=== PATIENT | female | born 1955 | race Two or more races ===

== ENCOUNTER 2022-06-23 18:43 | Inpatient (IN) | payer OTHER, MEDICAID ==
[~2022-06-23] VITALS: Ht 165.1 cm; Wt 88.0 kg
[2022-06-23] MEDS ORDERED: SODIUM CHLORIDE 0.9% 1,000 ML IV ONE (19:45)
[2022-06-23 20:15] LABS: Basophils # (auto) 0.1 10 ^3/uL (0-0.2); Basophils % (auto) 0.8 % (0.0-2.0); Eosinophils # (auto) 0.1 10 ^3/uL (0-0.8); Eosinophils % (auto) 0.8 % (0.0-7.0); Hematocrit 39.5 % (36.0-46.0); Hemoglobin 12.8 g/dL (12.2-16.2); Lymphocytes # (auto) 0.9 10 ^3/uL (0.4-5.4); Lymphocytes % (auto) 10.9 % (10.0-50.0); Mean Corpuscular Hemoglobin 28.1 pg (28.0-32.0); Mean Corpuscular Hgb Conc. 32.4 g/dL (32.0-36.0); Mean Corpuscular Volume 86.7 fL (80.0-100.0); Monocytes # (auto) 0.4 10 ^3/uL (0-1.3); Monocytes % (auto) 4.4 % (0.0-12.0); Neutrophils # (auto) 6.9 10 ^3/uL (1.6-8.6); Neutrophils % (auto) 83.1 % (37.0-80.0); Nucleated Red Blood Cells % 0.1 %; Red Blood Cells 4.56 10^6/uL (4.0-5.20); Red Cell Distribution Width 17.7 % (11.8-14.3); White Blood Cell 8.3 10^3/uL (4.4-10.8)
[2022-06-23 20:34] LABS: Albumin 3.4 g/dL (3.4-5.0); CRP High Sensitivity 0.4 mg/dL (< 0.3); Calcium 8.7 mg/dL (8.5-10.1); Magnesium 2.3 mg/dL (1.6-2.6); Potassium 3.5 mmol/L (3.5-5.1)
[2022-06-23 20:38] LABS: BUN/Creatinine Ratio 17.6; Bilirubin, Total 0.3 mg/dL (0.2-1.0); Total Protein 6.6 g/dL (6.4-8.2)
[2022-06-23] MEDS ORDERED: SODIUM CHLORIDE 0.9% 500 ML IV ONE (21:15)
[2022-06-23] MEDS ORDERED: LEVOTHYROXINE SODIUM 100 MCG/5 ML INJ IV ONE ×2 (21:30→22:30)
[2022-06-23] MEDS ORDERED: NITROGLYCERIN 0.4 MG SL TAB SL PRN (21:30)
[2022-06-23] MEDS ORDERED: TEMAZEPAM 15 MG CAP PO PRN (21:30)
[2022-06-23] MEDS ORDERED: MORPHINE SULFATE INJ 2 MG/ml SYRG IV PRN (21:30)
[2022-06-23] MEDS ORDERED: ONDANSETRON HCL 4 MG/2 ML VIAL IV PRN (21:30)
[2022-06-23] MEDS ORDERED: DEXTROSE (50%) 50ML SYRG IV PRN (21:30)
[2022-06-23 21:40] LABS: Urine Bacteria NONE SEEN /hpf (None Seen); Urine Blood Negative /uL (Negative); Urine Specific Gravity 1.007 (1.001-1.035); Urine WBC 1 /hpf (0 - 5)
[2022-06-23] MEDS ORDERED: POTASSIUM CHL 20MEQ/100ML 100 ML IV ONE ×3 (21:55→23:00)
[2022-06-23] MEDS ORDERED: AMIODARONE HCL (50 MG/ ML) 3 ML VIAL IV ONE (21:58)
[2022-06-23] MEDS ORDERED: AMIODARONE 450mg/250ml AE 0 ML IV ONE (21:58)
[2022-06-23] MEDS ORDERED: MAGNESIUM SULFATE 1GM/100ML 200 ML IV ONE (21:59)
[2022-06-23] MEDS: MAGNESIUM SULFATE 1GM/100ML 100 ML IV SCH ×2 (22:00→23:00)
[2022-06-23] MEDS: hydrALAZINE HCL 20 MG/ML VL IV PRN (22:32)
[2022-06-23] MEDS ORDERED: DOPamine 1600MCG/ML D5W 250 ML IV ONE (22:51)
[2022-06-23] MEDS ORDERED: DOPamine 1600MCG/ML D5W 250 ML IV SCH (23:00)
[2022-06-23] MEDS: DOPamine 1600MCG/ML D5W 250 ML IV SCH (23:15)
[2022-06-24] VITALS (56 sets, daily range): BP systolic 90–192; BP diastolic 34–79
[2022-06-24] MEDS: InsuLIN REG 1unit/0.01ml Soln (100units/ml) SC SCH ×4 (01:41→18:38)
[2022-06-24] MEDS: ACCU-CHEK COMFORT CURVE STRIP VI SCH ×4 (01:41→18:00)
[2022-06-24] MEDS ORDERED: cefTRIAXone 1GM/50ML D5W 50 ML IV ONE ×2 (02:45→03:59)
[2022-06-24] MEDS ORDERED: MEPERIDINE HCL (25 MG/ML) 1ML VIAL IV ONE (02:45)
[2022-06-24 03:21] LABS: Basophils # (auto) 0.1 10 ^3/uL (0-0.2); Basophils % (auto) 0.5 % (0.0-2.0); Eosinophils # (auto) 0 10 ^3/uL (0-0.8); Hematocrit 43.5 % (36.0-46.0); Hemoglobin 14.1 g/dL (12.2-16.2); Lymphocytes % (auto) 6.4 % (10.0-50.0); Mean Corpuscular Hemoglobin 27.8 pg (28.0-32.0); Mean Corpuscular Hgb Conc. 32.5 g/dL (32.0-36.0); Mean Corpuscular Volume 85.7 fL (80.0-100.0); Monocytes # (auto) 0.8 10 ^3/uL (0-1.3); Monocytes % (auto) 5.1 % (0.0-12.0); Neutrophils # (auto) 13.6 10 ^3/uL (1.6-8.6); Red Blood Cells 5.08 10^6/uL (4.0-5.20); Red Cell Distribution Width 18.1 % (11.8-14.3); White Blood Cell 15.5 10^3/uL (4.4-10.8)
[2022-06-24] MEDS ORDERED: AMIODARONE 450mg/250ml AE 250 ML IV ONE (03:21)
[2022-06-24] MEDS ORDERED: MAGNESIUM SULFATE 1GM/100ML 200 ML IV ONE (03:22)
[2022-06-24 03:33] LABS: Albumin 3.5 g/dL (3.4-5.0); BUN/Creatinine Ratio 14.9; Calcium 8.6 mg/dL (8.5-10.1); Potassium 3.9 mmol/L (3.5-5.1)
[2022-06-24 03:36] LABS: Bilirubin, Total 0.8 mg/dL (0.2-1.0); Total Protein 7.2 g/dL (6.4-8.2)
[2022-06-24] MEDS: MAGNESIUM SULFATE 1GM/100ML 100 ML IV SCH ×2 (03:49→04:47)
[2022-06-24] MEDS ORDERED: NITROGLYCERIN 2% OINT 1GM PKG TD ONE ×2 (03:52→04:00)
[2022-06-24] MEDS: DOPamine 1600MCG/ML D5W 250 ML IV SCH ×3 (04:16→19:50)
[2022-06-24 04:43] LABS: Albumin 3.6 g/dL (3.4-5.0); BUN/Creatinine Ratio 14.4; Calcium 8.5 mg/dL (8.5-10.1); Potassium 3.2 mmol/L (3.5-5.1)
[2022-06-24 04:46] LABS: Bilirubin, Total 0.7 mg/dL (0.2-1.0); Total Protein 7.1 g/dL (6.4-8.2)
[2022-06-24] MEDS ORDERED: ETOMIDATE (2MG/ML) 20ML VIAL IV ONE ×3 (06:08→06:20)
[2022-06-24] MEDS ORDERED: SUCCINYLCHOLINE CHLORIDE 20 MG/ML 10ML VIAL IV ONE ×2 (06:08→06:09)
[2022-06-24] MEDS ORDERED: MIDAZOLAM DRIP 50 mg/50mL 50 ML IV ONE (06:09)
[2022-06-24] MEDS: MIDAZOLAM DRIP 50 mg/50mL 50 ML IV SCH ×6 (06:27→23:19)
[2022-06-24] MEDS ORDERED: fentaNYL Drip 2500mCg/250mlNS 250 ML IV ONE (06:42)
[2022-06-24] MEDS: fentaNYL Drip 2500mCg/250mlNS 250 ML IV SCH (06:44)
[2022-06-24] MEDS: LEVOTHYROXINE SODIUM 50 MCG TAB PO SCH (07:00)
[2022-06-24] MEDS ORDERED: NOREPINEPHRINE 8 MG/250ML KIT 250 ML IV ONE ×2 (07:03→07:05)
[2022-06-24] MEDS: NOREPINEPHRINE 8 MG/250ML KIT 250 ML IV SCH ×2 (07:15→20:45)
[2022-06-24] MEDS ORDERED: IOHEXOL 350 MG/ML 100ML IJ ONE ×2 (07:50→11:35)
[2022-06-24] MEDS ORDERED: LIDOCAINE 2%HCL (LOCAL ANESTH.) INJ 20ML MDV ONE ×3 (07:50→11:35)
[2022-06-24 09:04] LABS: INR 1.02 (0.9-1.15); Partial Thromboplastin Time 26.5 sec (24.6-33.4)
[2022-06-24] MEDS ORDERED: AMIODARONE 450mg/250ml AE 250 ML IV SCH (09:30)
[2022-06-24] MEDS: amLODIPine BESYLATE 5 MG TAB PO SCH (10:00)
[2022-06-24] MEDS ORDERED: PANTOPRAZOLE 40 MG TAB PO SCH (10:00)
[2022-06-24] MEDS: HEPARIN SODIUM (PORCINE) 5000 UNITS/ML 1ML VIAL SC SCH ×2 (10:00→21:44)
[2022-06-24] MEDS ORDERED: LIDOCAINE 2%HCL (LOCAL ANESTH.) INJ 10ml MDV IJ ONE (10:08)
[2022-06-24] MEDS ORDERED: MORPHINE SULFATE 4 MG/ML SYR/VIAL ONE (10:17)
[2022-06-24] MEDS ORDERED: PROPOFOL 100 ML IV ONE (10:18)
[2022-06-24] MEDS: PROPOFOL 100 ML IV SCH (10:35)
[2022-06-24] MEDS ORDERED: EPINEPHrine HCL 250 ML IV SCH (11:00)
[2022-06-24] MEDS ORDERED: ANGIOMAX 250 MG VIAL IV ONE (11:34)
[2022-06-24] MEDS ORDERED: ATROPINE SULF 1 MG/10ml SYR ONE (11:34)
[2022-06-24] MEDS ORDERED: SODIUM CHL 0.9% 0 ML ONE (11:35)
[2022-06-24] MEDS ORDERED: EPINEPHrine HCL 1 MG/10 ML SYRG ONE (11:35)
[2022-06-24] MEDS ORDERED: POTASSIUM CHL 20MEQ/100ML 200 ML IV ONE (12:02)
[2022-06-24] MEDS ORDERED: POTASSIUM CHL 20MEQ/100ML 100 ML IV ONE ×2 (15:15)
[2022-06-24] MEDS: ACETAMINOPHEN 325 MG TAB PO PRN (21:45)
[2022-06-25] VITALS (77 sets, daily range): BP systolic 89–141; BP diastolic 24–58
[2022-06-25] MEDS: ACCU-CHEK COMFORT CURVE STRIP VI SCH ×4 (00:05→18:00)
[2022-06-25 04:41] LABS: Basophils # (auto) 0.1 10 ^3/uL (0-0.2); Basophils % (auto) 0.4 % (0.0-2.0); Eosinophils # (auto) 0 10 ^3/uL (0-0.8); Hematocrit 36.6 % (36.0-46.0); Lymphocytes % (auto) 14.3 % (10.0-50.0); Mean Corpuscular Hemoglobin 28.5 pg (28.0-32.0); Mean Corpuscular Hgb Conc. 32.7 g/dL (32.0-36.0); Mean Corpuscular Volume 87.3 fL (80.0-100.0); Monocytes # (auto) 0.7 10 ^3/uL (0-1.3); Monocytes % (auto) 5.1 % (0.0-12.0); Neutrophils # (auto) 11.2 10 ^3/uL (1.6-8.6); Neutrophils % (auto) 80.2 % (37.0-80.0); Red Cell Distribution Width 18.3 % (11.8-14.3)
[2022-06-25 04:42] LABS: BUN/Creatinine Ratio 16.4; Calcium 8.6 mg/dL (8.5-10.1); Potassium 4.8 mmol/L (3.5-5.1)
[2022-06-25] MEDS: MIDAZOLAM DRIP 50 mg/50mL 50 ML IV SCH ×3 (05:05→17:58)
[2022-06-25] MEDS: fentaNYL Drip 2500mCg/250mlNS 250 ML IV SCH ×2 (05:07→10:00)
[2022-06-25] MEDS: InsuLIN REG 1unit/0.01ml Soln (100units/ml) SC SCH ×4 (06:00→18:51)
[2022-06-25] MEDS: LEVOTHYROXINE SODIUM 50 MCG TAB PO SCH (06:23)
[2022-06-25] MEDS: amLODIPine BESYLATE 5 MG TAB PO SCH (10:00)
[2022-06-25] MEDS: PROPOFOL 100 ML IV SCH (10:30)
[2022-06-25] MEDS ORDERED: ENOXAPARIN SOD 40 MG/0.4 ML SYRINGE SC ONE (11:30)
[2022-06-25] MEDS: NOREPINEPHRINE 8 MG/250ML KIT 250 ML IV SCH (13:12)
[2022-06-26] VITALS (92 sets, daily range): BP systolic 99–160; BP diastolic 34–67
[2022-06-26] MEDS: ACCU-CHEK COMFORT CURVE STRIP VI SCH ×4 (00:25→18:02)
[2022-06-26] MEDS: InsuLIN REG 1unit/0.01ml Soln (100units/ml) SC SCH ×4 (00:33→18:17)
[2022-06-26] MEDS: MIDAZOLAM DRIP 50 mg/50mL 50 ML IV SCH ×2 (03:22→11:46)
[2022-06-26] MEDS: NOREPINEPHRINE 8 MG/250ML KIT 250 ML IV SCH (03:24)
[2022-06-26] MEDS: fentaNYL Drip 2500mCg/250mlNS 250 ML IV SCH (03:35)
[2022-06-26 03:53] LABS: Basophils # (auto) 0.1 10 ^3/uL (0-0.2); Basophils % (auto) 0.6 % (0.0-2.0); Eosinophils # (auto) 0 10 ^3/uL (0-0.8); Eosinophils % (auto) 0.2 % (0.0-7.0); Hematocrit 32.9 % (36.0-46.0); Hemoglobin 10.9 g/dL (12.2-16.2); Lymphocytes # (auto) 1.2 10 ^3/uL (0.4-5.4); Mean Corpuscular Hemoglobin 28.9 pg (28.0-32.0); Mean Corpuscular Volume 87.4 fL (80.0-100.0); Monocytes # (auto) 0.6 10 ^3/uL (0-1.3); Monocytes % (auto) 5.5 % (0.0-12.0); Neutrophils # (auto) 8.4 10 ^3/uL (1.6-8.6); Neutrophils % (auto) 81.7 % (37.0-80.0); Red Blood Cells 3.77 10^6/uL (4.0-5.20); Red Cell Distribution Width 18.6 % (11.8-14.3); White Blood Cell 10.2 10^3/uL (4.4-10.8)
[2022-06-26 04:08] LABS: Calcium 9.1 mg/dL (8.5-10.1); Potassium 4.6 mmol/L (3.5-5.1)
[2022-06-26] MEDS: LEVOTHYROXINE SODIUM 50 MCG TAB PO SCH (05:49)
[2022-06-26] MEDS: amLODIPine BESYLATE 5 MG TAB PO SCH (10:00)
[2022-06-26] MEDS: PROPOFOL 100 ML IV SCH (10:30)
[2022-06-26] MEDS: PANTOPRAZOLE 40 MG/10 ML VIAL INJ IV SCH (11:42)
[2022-06-26] MEDS: AZITHROMYCIN 500MG/ 250ML 250 ML IV SCH (11:44)
[2022-06-26] MEDS: cefTRIAXone 1GM/50ML D5W 50 ML IV SCH (11:44)
[2022-06-26] MEDS: ENOXAPARIN SOD 40 MG/0.4 ML SYRINGE SC SCH (11:55)
[2022-06-26] MEDS ORDERED: SODIUM BICARBONATE 50ML VIAL 75 ML in D5W 5% 1,000 ML IV ONE (13:45)
[2022-06-27] VITALS (108 sets, daily range): BP systolic 90–179; BP diastolic 40–93
[2022-06-27] MEDS: ACCU-CHEK COMFORT CURVE STRIP VI SCH ×5 (00:12→23:36)
[2022-06-27] MEDS: InsuLIN REG 1unit/0.01ml Soln (100units/ml) SC SCH ×5 (00:14→23:41)
[2022-06-27 04:32] LABS: Basophils # (auto) 0 10 ^3/uL (0-0.2); Basophils % (auto) 0.5 % (0.0-2.0); Eosinophils # (auto) 0 10 ^3/uL (0-0.8); Eosinophils % (auto) 0.2 % (0.0-7.0); Hematocrit 30.6 % (36.0-46.0); Hemoglobin 10.1 g/dL (12.2-16.2); Lymphocytes # (auto) 0.7 10 ^3/uL (0.4-5.4); Lymphocytes % (auto) 9.4 % (10.0-50.0); Mean Corpuscular Hemoglobin 28.9 pg (28.0-32.0); Mean Corpuscular Hgb Conc. 33.2 g/dL (32.0-36.0); Mean Corpuscular Volume 87.1 fL (80.0-100.0); Monocytes # (auto) 0.5 10 ^3/uL (0-1.3); Monocytes % (auto) 6.9 % (0.0-12.0); Neutrophils # (auto) 6.2 10 ^3/uL (1.6-8.6); Nucleated Red Blood Cells % 0.1 %; Red Blood Cells 3.51 10^6/uL (4.0-5.20); White Blood Cell 7.4 10^3/uL (4.4-10.8)
[2022-06-27 04:51] LABS: BUN/Creatinine Ratio 33.1; Calcium 8.5 mg/dL (8.5-10.1); Magnesium 3.1 mg/dL (1.6-2.6); Phosphorus 3.4 mg/dL (2.5-4.90); Potassium 4.3 mmol/L (3.5-5.1)
[2022-06-27] MEDS: LEVOTHYROXINE SODIUM 50 MCG TAB PO SCH (06:25)
[2022-06-27] MEDS: fentaNYL Drip 2500mCg/250mlNS 250 ML IV SCH (06:42)
[2022-06-27] MEDS: NOREPINEPHRINE 8 MG/250ML KIT 250 ML IV SCH (07:15)
[2022-06-27] MEDS: PANTOPRAZOLE 40 MG/10 ML VIAL INJ IV SCH (09:53)
[2022-06-27] MEDS: ENOXAPARIN SOD 40 MG/0.4 ML SYRINGE SC SCH (09:53)
[2022-06-27] MEDS: cefTRIAXone 1GM/50ML D5W 50 ML IV SCH (09:53)
[2022-06-27] MEDS: amLODIPine BESYLATE 5 MG TAB PO SCH (09:54)
[2022-06-27] MEDS: AZITHROMYCIN 500MG/ 250ML 250 ML IV SCH (09:54)
[2022-06-27] MEDS: PROPOFOL 100 ML IV SCH (09:54)
[2022-06-27] MEDS: hydrALAZINE HCL 20 MG/ML VL IV PRN ×2 (11:53→19:49)
[2022-06-27] MEDS ORDERED: SODIUM BICARBONATE 50ML VIAL 75 ML in D5W 5% 1,000 ML IV ONE (14:30)
[2022-06-27] MEDS: ARTIFICIAL TEARS 15ml EACHEYE PRN ×2 (16:52→23:49)
[2022-06-27 23:36] LABS: Urine Bacteria FEW /hpf (None Seen); Urine Blood 2+ /uL (Negative); Urine Mucus FEW (None Seen); Urine WBC 4 /hpf (0 - 5)
[2022-06-27 23:49] LABS: Protein, Urine 56.4 mg/dL (0.0-11.9)
[2022-06-28] VITALS (105 sets, daily range): BP systolic 98–187; BP diastolic 43–106
[2022-06-28] MEDS: hydrALAZINE HCL 20 MG/ML VL IV PRN ×2 (02:39→18:53)
[2022-06-28 03:46] LABS: Basophils # (auto) 0.1 10 ^3/uL (0-0.2); Basophils % (auto) 0.8 % (0.0-2.0); Eosinophils # (auto) 0 10 ^3/uL (0-0.8); Eosinophils % (auto) 0.3 % (0.0-7.0); Hematocrit 31.4 % (36.0-46.0); Hemoglobin 10.4 g/dL (12.2-16.2); Lymphocytes # (auto) 1.2 10 ^3/uL (0.4-5.4); Lymphocytes % (auto) 14.8 % (10.0-50.0); Mean Corpuscular Hemoglobin 28.6 pg (28.0-32.0); Mean Corpuscular Hgb Conc. 33.2 g/dL (32.0-36.0); Mean Corpuscular Volume 86.2 fL (80.0-100.0); Monocytes # (auto) 0.8 10 ^3/uL (0-1.3); Monocytes % (auto) 9.8 % (0.0-12.0); Neutrophils # (auto) 5.8 10 ^3/uL (1.6-8.6); Neutrophils % (auto) 74.3 % (37.0-80.0); Nucleated Red Blood Cells % 0.1 %; Red Blood Cells 3.64 10^6/uL (4.0-5.20); Red Cell Distribution Width 17.9 % (11.8-14.3); White Blood Cell 7.8 10^3/uL (4.4-10.8)
[2022-06-28 04:05] LABS: Potassium 3.9 mmol/L (3.5-5.1)
[2022-06-28] MEDS: MIDAZOLAM DRIP 50 mg/50mL 50 ML IV SCH (06:08)
[2022-06-28] MEDS: ACCU-CHEK COMFORT CURVE STRIP VI SCH ×4 (06:17→23:41)
[2022-06-28] MEDS: InsuLIN REG 1unit/0.01ml Soln (100units/ml) SC SCH ×4 (06:19→23:41)
[2022-06-28] MEDS: LEVOTHYROXINE SODIUM 50 MCG TAB PO SCH (06:20)
[2022-06-28] MEDS: fentaNYL Drip 2500mCg/250mlNS 250 ML IV SCH (06:42)
[2022-06-28] MEDS: NOREPINEPHRINE 8 MG/250ML KIT 250 ML IV SCH (07:15)
[2022-06-28] MEDS: ENOXAPARIN SOD 40 MG/0.4 ML SYRINGE SC SCH (09:22)
[2022-06-28] MEDS: AZITHROMYCIN 500MG/ 250ML 250 ML IV SCH (09:23)
[2022-06-28] MEDS: cefTRIAXone 1GM/50ML D5W 50 ML IV SCH (09:23)
[2022-06-28] MEDS: PANTOPRAZOLE 40 MG/10 ML VIAL INJ IV SCH (09:23)
[2022-06-28] MEDS: amLODIPine BESYLATE 5 MG TAB PO SCH (09:33)
[2022-06-28] MEDS ORDERED: OMEP-260 PO (09:41)
[2022-06-28] MEDS ORDERED: ROSU1TAB14 PO (09:41)
[2022-06-28] MEDS ORDERED: DILT-14 PO (09:41)
[2022-06-28] MEDS ORDERED: ROSU20TA14 PO (09:41)
[2022-06-28] MEDS ORDERED: HYDR25TA87 PO (09:41)
[2022-06-28] MEDS ORDERED: LISI20TA28 PO (09:41)
[2022-06-28] MEDS ORDERED: AMIO200T4 PO (09:41)
[2022-06-28] MEDS ORDERED: FLUT50SP NAS (09:41)
[2022-06-28] MEDS ORDERED: CYAN100058 SL (09:41)
[2022-06-28] MEDS ORDERED: DABI150C5 PO (09:41)
[2022-06-28] MEDS ORDERED: ALBU108A5 INH (09:41)
[2022-06-28] MEDS: PROPOFOL 100 ML IV SCH (10:30)
[2022-06-28] MEDS: ACETAMINOPHEN 325 MG TAB PO PRN (22:58)
[2022-06-29] VITALS (105 sets, daily range): BP systolic 95–194; BP diastolic 41–132
[2022-06-29] MEDS: hydrALAZINE HCL 20 MG/ML VL IV PRN ×2 (02:07→08:16)
[2022-06-29 04:22] LABS: Basophils # (auto) 0 10 ^3/uL (0-0.2); Basophils % (auto) 0.4 % (0.0-2.0); Eosinophils # (auto) 0 10 ^3/uL (0-0.8); Eosinophils % (auto) 0.1 % (0.0-7.0); Hematocrit 32.1 % (36.0-46.0); Hemoglobin 10.8 g/dL (12.2-16.2); Lymphocytes % (auto) 9.9 % (10.0-50.0); Mean Corpuscular Hgb Conc. 33.6 g/dL (32.0-36.0); Mean Corpuscular Volume 86.2 fL (80.0-100.0); Monocytes % (auto) 10.3 % (0.0-12.0); Neutrophils # (auto) 7.8 10 ^3/uL (1.6-8.6); Neutrophils % (auto) 79.3 % (37.0-80.0); Red Blood Cells 3.72 10^6/uL (4.0-5.20); Red Cell Distribution Width 17.5 % (11.8-14.3); White Blood Cell 9.8 10^3/uL (4.4-10.8)
[2022-06-29] MEDS: ARTIFICIAL TEARS 15ml EACHEYE PRN ×2 (04:30→08:00)
[2022-06-29 04:40] LABS: Calcium 9.7 mg/dL (8.5-10.1); Potassium 4.1 mmol/L (3.5-5.1)
[2022-06-29 04:42] LABS: BUN/Creatinine Ratio 37.2
[2022-06-29] MEDS: MIDAZOLAM DRIP 50 mg/50mL 50 ML IV SCH (06:08)
[2022-06-29] MEDS: ACCU-CHEK COMFORT CURVE STRIP VI SCH ×3 (06:18→17:38)
[2022-06-29] MEDS: InsuLIN REG 1unit/0.01ml Soln (100units/ml) SC SCH ×3 (06:19→17:45)
[2022-06-29] MEDS: fentaNYL Drip 2500mCg/250mlNS 250 ML IV SCH (06:42)
[2022-06-29] MEDS: LEVOTHYROXINE SODIUM 50 MCG TAB PO SCH (06:46)
[2022-06-29] MEDS: NOREPINEPHRINE 8 MG/250ML KIT 250 ML IV SCH (07:15)
[2022-06-29] MEDS: PANTOPRAZOLE 40 MG/10 ML VIAL INJ IV SCH (09:44)
[2022-06-29] MEDS: cefTRIAXone 1GM/50ML D5W 50 ML IV SCH (09:44)
[2022-06-29] MEDS: ENOXAPARIN SOD 40 MG/0.4 ML SYRINGE SC SCH (09:44)
[2022-06-29] MEDS: amLODIPine BESYLATE 5 MG TAB PO SCH (09:45)
[2022-06-29] MEDS: AZITHROMYCIN 500MG/ 250ML 250 ML IV SCH (09:45)
[2022-06-29] MEDS: PROPOFOL 100 ML IV SCH (10:30)
[2022-06-30] VITALS (80 sets, daily range): BP systolic 96–187; BP diastolic 45–91
[2022-06-30] MEDS: ACCU-CHEK COMFORT CURVE STRIP VI SCH ×4 (00:28→18:00)
[2022-06-30] MEDS: InsuLIN REG 1unit/0.01ml Soln (100units/ml) SC SCH ×4 (00:30→18:05)
[2022-06-30] MEDS: hydrALAZINE HCL 20 MG/ML VL IV PRN ×2 (03:15→21:11)
[2022-06-30] MEDS: MIDAZOLAM DRIP 50 mg/50mL 50 ML IV SCH (06:08)
[2022-06-30 06:22] LABS: BUN/Creatinine Ratio 40.3; Calcium 9.8 mg/dL (8.5-10.1); Potassium 4.1 mmol/L (3.5-5.1)
[2022-06-30] MEDS: fentaNYL Drip 2500mCg/250mlNS 250 ML IV SCH (06:42)
[2022-06-30 06:54] LABS: Basophils # (auto) 0 10 ^3/uL (0-0.2); Basophils % (auto) 0.2 % (0.0-2.0); Eosinophils # (auto) 0 10 ^3/uL (0-0.8); Eosinophils % (auto) 0.1 % (0.0-7.0); Hematocrit 27.6 % (36.0-46.0); Hemoglobin 9.1 g/dL (12.2-16.2); Lymphocytes # (auto) 0.6 10 ^3/uL (0.4-5.4); Lymphocytes % (auto) 8.3 % (10.0-50.0); Mean Corpuscular Hemoglobin 29.1 pg (28.0-32.0); Mean Corpuscular Volume 88.4 fL (80.0-100.0); Monocytes # (auto) 0.7 10 ^3/uL (0-1.3); Monocytes % (auto) 9.1 % (0.0-12.0); Neutrophils # (auto) 6.2 10 ^3/uL (1.6-8.6); Neutrophils % (auto) 82.3 % (37.0-80.0); Nucleated Red Blood Cells % 0.1 %; Red Blood Cells 3.13 10^6/uL (4.0-5.20); Red Cell Distribution Width 17.3 % (11.8-14.3); White Blood Cell 7.5 10^3/uL (4.4-10.8)
[2022-06-30] MEDS: NOREPINEPHRINE 8 MG/250ML KIT 250 ML IV SCH (07:15)
[2022-06-30] MEDS: LEVOTHYROXINE SODIUM 50 MCG TAB PO SCH (07:25)
[2022-06-30] MEDS: cefTRIAXone 1GM/50ML D5W 50 ML IV SCH (09:07)
[2022-06-30] MEDS: PANTOPRAZOLE 40 MG/10 ML VIAL INJ IV SCH (10:11)
[2022-06-30] MEDS: AZITHROMYCIN 500MG/ 250ML 250 ML IV SCH (10:11)
[2022-06-30] MEDS: amLODIPine BESYLATE 5 MG TAB PO SCH (10:12)
[2022-06-30] MEDS: ENOXAPARIN SOD 40 MG/0.4 ML SYRINGE SC SCH (10:12)
[2022-06-30] MEDS: PROPOFOL 100 ML IV SCH (10:30)
[2022-06-30] MEDS: FREE WATER GT SCH ×2 (12:05→18:00)
[2022-07-01] VITALS (47 sets, daily range): BP systolic 131–185; BP diastolic 45–76
[2022-07-01] MEDS: hydrALAZINE HCL 20 MG/ML VL IV PRN ×3 (03:02→18:11)
[2022-07-01 04:18] LABS: Basophils # (auto) 0 10 ^3/uL (0-0.2); Basophils % (auto) 0.1 % (0.0-2.0); Eosinophils # (auto) 0 10 ^3/uL (0-0.8); Hematocrit 29.5 % (36.0-46.0); Hemoglobin 9.6 g/dL (12.2-16.2); Lymphocytes # (auto) 1.1 10 ^3/uL (0.4-5.4); Lymphocytes % (auto) 9.3 % (10.0-50.0); Mean Corpuscular Hemoglobin 28.7 pg (28.0-32.0); Mean Corpuscular Hgb Conc. 32.5 g/dL (32.0-36.0); Mean Corpuscular Volume 88.3 fL (80.0-100.0); Monocytes % (auto) 8.7 % (0.0-12.0); Neutrophils # (auto) 9.4 10 ^3/uL (1.6-8.6); Neutrophils % (auto) 81.9 % (37.0-80.0); Nucleated Red Blood Cells % 0.3 %; Red Blood Cells 3.34 10^6/uL (4.0-5.20); White Blood Cell 11.4 10^3/uL (4.4-10.8)
[2022-07-01 04:47] LABS: BUN/Creatinine Ratio 39.2; Calcium 10.1 mg/dL (8.5-10.1); Potassium 4.1 mmol/L (3.5-5.1)
[2022-07-01] MEDS: FREE WATER GT SCH ×3 (05:37→12:10)
[2022-07-01] MEDS: ACCU-CHEK COMFORT CURVE STRIP VI SCH ×4 (05:51→18:25)
[2022-07-01] MEDS: InsuLIN REG 1unit/0.01ml Soln (100units/ml) SC SCH ×4 (05:52→18:27)
[2022-07-01] MEDS: LEVOTHYROXINE SODIUM 50 MCG TAB PO SCH (06:08)
[2022-07-01] MEDS: NOREPINEPHRINE 8 MG/250ML KIT 250 ML IV SCH (07:15)
[2022-07-01] MEDS: cefTRIAXone 1GM/50ML D5W 50 ML IV SCH (08:47)
[2022-07-01] MEDS: PANTOPRAZOLE 40 MG/10 ML VIAL INJ IV SCH (10:02)
[2022-07-01] MEDS: AZITHROMYCIN 500MG/ 250ML 250 ML IV SCH (10:03)
[2022-07-01] MEDS: amLODIPine BESYLATE 5 MG TAB PO SCH (10:03)
[2022-07-01] MEDS: ENOXAPARIN SOD 40 MG/0.4 ML SYRINGE SC SCH (10:04)
[2022-07-01] MEDS ORDERED: hydrALAZINE HCL 25 MG TAB PO PRN (11:30)
[2022-07-01] MEDS: D5W 5% 1,000 ML IV SCH ×2 (12:04→21:30)
[2022-07-01] MEDS ORDERED: hydrALAZINE HCL 25 MG TAB PO SCH (12:30)
[2022-07-01] MEDS ORDERED: hydrALAZINE HCL 20 MG/ML VL IV PRN (15:15)
[2022-07-02] VITALS (56 sets, daily range): BP systolic 120–187; BP diastolic 46–76
[2022-07-02] MEDS: hydrALAZINE HCL 20 MG/ML VL IV PRN (00:09)
[2022-07-02] MEDS: ACCU-CHEK COMFORT CURVE STRIP VI SCH ×4 (00:22→17:18)
[2022-07-02] MEDS: InsuLIN REG 1unit/0.01ml Soln (100units/ml) SC SCH ×4 (00:23→17:40)
[2022-07-02 04:16] LABS: Basophils # (auto) 0 10 ^3/uL (0-0.2); Basophils % (auto) 0.4 % (0.0-2.0); Eosinophils # (auto) 0.1 10 ^3/uL (0-0.8); Eosinophils % (auto) 0.6 % (0.0-7.0); Hematocrit 27.3 % (36.0-46.0); Hemoglobin 9.1 g/dL (12.2-16.2); Lymphocytes # (auto) 1.2 10 ^3/uL (0.4-5.4); Lymphocytes % (auto) 11.8 % (10.0-50.0); Mean Corpuscular Hemoglobin 29.3 pg (28.0-32.0); Mean Corpuscular Hgb Conc. 33.3 g/dL (32.0-36.0); Mean Corpuscular Volume 87.9 fL (80.0-100.0); Monocytes % (auto) 9.7 % (0.0-12.0); Neutrophils # (auto) 7.7 10 ^3/uL (1.6-8.6); Neutrophils % (auto) 77.5 % (37.0-80.0); Nucleated Red Blood Cells % 0.3 %; Red Blood Cells 3.11 10^6/uL (4.0-5.20); Red Cell Distribution Width 16.7 % (11.8-14.3); White Blood Cell 9.9 10^3/uL (4.4-10.8)
[2022-07-02 04:25] LABS: BUN/Creatinine Ratio 33.8; Calcium 10.2 mg/dL (8.5-10.1); Potassium 3.8 mmol/L (3.5-5.1)
[2022-07-02] MEDS: NOREPINEPHRINE 8 MG/250ML KIT 250 ML IV SCH (07:15)
[2022-07-02] MEDS: cefTRIAXone 1GM/50ML D5W 50 ML IV SCH (08:36)
[2022-07-02] MEDS: ENOXAPARIN SOD 40 MG/0.4 ML SYRINGE SC SCH (09:06)
[2022-07-02] MEDS: AZITHROMYCIN 500MG/ 250ML 250 ML IV SCH (10:07)
[2022-07-02] MEDS: PANTOPRAZOLE 40 MG/10 ML VIAL INJ IV SCH (10:07)
[2022-07-02] MEDS ORDERED: fentaNYL CITRATE 100 MCG/2 ML VL ONE (13:59)
[2022-07-02] MEDS ORDERED: MIDAZOLAM HCL 2MG/2ML 2ml VIAL (1mg/ml) ONE (13:59)
[2022-07-02] MEDS ORDERED: VANCOMYCIN HCL 1000 MG VL ONE (13:59)
[2022-07-02] MEDS ORDERED: LIDOCAINE 2%HCL (LOCAL ANESTH.) INJ 10ml MDV ONE (13:59)
[2022-07-02] MEDS ORDERED: VANCOMYCIN 1GM/250ML 250 ML IV ONE (14:00)
[2022-07-02] MEDS ORDERED: FUROSEMIDE 20 MG/2 ML VIAL ONE (15:20)
[2022-07-02] MEDS ORDERED: cloNIDine 0.2 mg/24hr 7DAY PATCH TD SCH (17:00)
[2022-07-02] MEDS ORDERED: hydrALAZINE HCL 20 MG/ML VL IV ONE (18:45)
[2022-07-03] VITALS (42 sets, daily range): BP systolic 141–183; BP diastolic 49–79
[2022-07-03] MEDS: ACCU-CHEK COMFORT CURVE STRIP VI SCH ×4 (00:36→18:19)
[2022-07-03] MEDS: InsuLIN REG 1unit/0.01ml Soln (100units/ml) SC SCH ×4 (00:37→18:00)
[2022-07-03 05:12] LABS: Basophils # (auto) 0.1 10 ^3/uL (0-0.2); Basophils % (auto) 0.8 % (0.0-2.0); Eosinophils # (auto) 0.2 10 ^3/uL (0-0.8); Eosinophils % (auto) 2.7 % (0.0-7.0); Hematocrit 31.9 % (36.0-46.0); Hemoglobin 10.4 g/dL (12.2-16.2); Lymphocytes # (auto) 1.2 10 ^3/uL (0.4-5.4); Lymphocytes % (auto) 15.9 % (10.0-50.0); Mean Corpuscular Hemoglobin 28.9 pg (28.0-32.0); Mean Corpuscular Hgb Conc. 32.7 g/dL (32.0-36.0); Mean Corpuscular Volume 88.4 fL (80.0-100.0); Monocytes # (auto) 0.8 10 ^3/uL (0-1.3); Monocytes % (auto) 10.1 % (0.0-12.0); Neutrophils # (auto) 5.3 10 ^3/uL (1.6-8.6); Neutrophils % (auto) 70.5 % (37.0-80.0); Nucleated Red Blood Cells % 0.2 %; Red Blood Cells 3.61 10^6/uL (4.0-5.20); Red Cell Distribution Width 16.8 % (11.8-14.3); White Blood Cell 7.5 10^3/uL (4.4-10.8)
[2022-07-03 05:28] LABS: Calcium 10.1 mg/dL (8.5-10.1); Potassium 3.8 mmol/L (3.5-5.1)
[2022-07-03 05:30] LABS: BUN/Creatinine Ratio 37.9
[2022-07-03] MEDS: cefTRIAXone 1GM/50ML D5W 50 ML IV SCH (09:33)
[2022-07-03] MEDS: AZITHROMYCIN 500MG/ 250ML 250 ML IV SCH (09:33)
[2022-07-03] MEDS: PANTOPRAZOLE 40 MG/10 ML VIAL INJ IV SCH (09:33)
[2022-07-03] MEDS ORDERED: PPN PER PHARMACY 0 ML IV SCH (11:15)
[2022-07-03 11:57] LABS: Calcium 10.1 mg/dL (8.5-10.1); Magnesium 1.9 mg/dL (1.6-2.6); Potassium 3.8 mmol/L (3.5-5.1)
[2022-07-03 12:01] LABS: BUN/Creatinine Ratio 34.4; Bilirubin, Total 0.4 mg/dL (0.2-1.0); Phosphorus 2.4 mg/dL (2.5-4.90); Total Protein 5.2 g/dL (6.4-8.2)
[2022-07-03] MEDS ORDERED: POTASSIUM PHOSPHATE 22 MEQ in SODIUM CHL 0.9% 100 ML IV ONE (12:30)
[2022-07-03] MEDS ORDERED: PPN PER PHARMACY IV NR ×8 (20:00)
[2022-07-04] VITALS (20 sets, daily range): BP systolic 129–186; BP diastolic 49–71
[2022-07-04] MEDS: ACCU-CHEK COMFORT CURVE STRIP VI SCH ×4 (01:15→18:16)
[2022-07-04] MEDS: InsuLIN REG 1unit/0.01ml Soln (100units/ml) SC SCH ×4 (01:25→17:38)
[2022-07-04] MEDS: hydrALAZINE HCL 20 MG/ML VL IV PRN ×2 (04:06→16:01)
[2022-07-04 06:23] LABS: Potassium 4.1 mmol/L (3.5-5.1)
[2022-07-04 06:31] LABS: Albumin 1.8 g/dL (3.4-5.0); BUN/Creatinine Ratio 36.5; Bilirubin, Total 0.6 mg/dL (0.2-1.0); Calcium 9.2 mg/dL (8.5-10.1); Magnesium 2.2 mg/dL (1.6-2.6); Phosphorus 2.2 mg/dL (2.5-4.90); Total Protein 5.3 g/dL (6.4-8.2)
[2022-07-04] MEDS: cefTRIAXone 1GM/50ML D5W 50 ML IV SCH (08:26)
[2022-07-04] MEDS: AZITHROMYCIN 500MG/ 250ML 250 ML IV SCH (09:26)
[2022-07-04] MEDS: PANTOPRAZOLE 40 MG/10 ML VIAL INJ IV SCH (09:26)
[2022-07-04] MEDS ORDERED: SODIUM PHOSPHATES 24 MEQ in SODIUM CHL 0.9% 100 ML IV ONE (11:00)
[2022-07-04] MEDS ORDERED: MORPHINE SULFATE INJ 2 MG/ml SYRG IV ONE (15:30)
[2022-07-04] MEDS ORDERED: FUROSEMIDE 40 MG/4 ML VIAL IV ONE (18:15)
[2022-07-04] MEDS ORDERED: PPN PER PHARMACY IV NR ×10 (20:00)
[2022-07-05] VITALS (21 sets, daily range): BP systolic 123–170; BP diastolic 43–66
[2022-07-05 05:51] LABS: Potassium 3.8 mmol/L (3.5-5.1)
[2022-07-05 06:00] LABS: Albumin 1.7 g/dL (3.4-5.0); BUN/Creatinine Ratio 32.3; Bilirubin, Total 0.5 mg/dL (0.2-1.0); Calcium 8.7 mg/dL (8.5-10.1); Magnesium 2.2 mg/dL (1.6-2.6); Phosphorus 2.8 mg/dL (2.5-4.90); Total Protein 4.6 g/dL (6.4-8.2)
[2022-07-05] MEDS: ACCU-CHEK COMFORT CURVE STRIP VI SCH ×4 (06:00→17:30)
[2022-07-05] MEDS: InsuLIN REG 1unit/0.01ml Soln (100units/ml) SC SCH ×4 (06:19→17:28)
[2022-07-05] MEDS: hydrALAZINE HCL 20 MG/ML VL IV PRN (06:59)
[2022-07-05] MEDS: cefTRIAXone 1GM/50ML D5W 50 ML IV SCH (09:23)
[2022-07-05] MEDS: AZITHROMYCIN 500MG/ 250ML 250 ML IV SCH (11:09)
[2022-07-05] MEDS: PANTOPRAZOLE 40 MG/10 ML VIAL INJ IV SCH (11:10)
[2022-07-05] MEDS ORDERED: PPN PER PHARMACY IV NR ×10 (20:00)
[2022-07-06] VITALS (18 sets, daily range): BP systolic 125–161; BP diastolic 45–68
[2022-07-06] MEDS: ACCU-CHEK COMFORT CURVE STRIP VI SCH ×5 (05:36→23:48)
[2022-07-06 06:18] LABS: Basophils # (auto) 0.1 10 ^3/uL (0-0.2); Basophils % (auto) 0.6 % (0.0-2.0); Eosinophils # (auto) 0.2 10 ^3/uL (0-0.8); Eosinophils % (auto) 1.9 % (0.0-7.0); Hematocrit 26.2 % (36.0-46.0); Lymphocytes # (auto) 1.2 10 ^3/uL (0.4-5.4); Lymphocytes % (auto) 13.7 % (10.0-50.0); Mean Corpuscular Hemoglobin 29.9 pg (28.0-32.0); Mean Corpuscular Hgb Conc. 34.3 g/dL (32.0-36.0); Mean Corpuscular Volume 87.2 fL (80.0-100.0); Monocytes # (auto) 0.8 10 ^3/uL (0-1.3); Monocytes % (auto) 9.2 % (0.0-12.0); Neutrophils # (auto) 6.6 10 ^3/uL (1.6-8.6); Neutrophils % (auto) 74.6 % (37.0-80.0); Red Cell Distribution Width 16.7 % (11.8-14.3); White Blood Cell 8.9 10^3/uL (4.4-10.8)
[2022-07-06] MEDS: InsuLIN REG 1unit/0.01ml Soln (100units/ml) SC SCH ×5 (06:26→23:14)
[2022-07-06 06:38] LABS: Potassium 3.3 mmol/L (3.5-5.1)
[2022-07-06 06:46] LABS: Albumin 1.7 g/dL (3.4-5.0); BUN/Creatinine Ratio 31.1; Bilirubin, Total 0.3 mg/dL (0.2-1.0); Calcium 8.5 mg/dL (8.5-10.1); Magnesium 2.3 mg/dL (1.6-2.6); Phosphorus 2.1 mg/dL (2.5-4.90); Total Protein 4.6 g/dL (6.4-8.2)
[2022-07-06] MEDS ORDERED: POTASSIUM PHOSP 22MEQ(15MMOLE) in NS 100 ML IV ONE (09:45)
[2022-07-06] MEDS: PANTOPRAZOLE 40 MG/10 ML VIAL INJ IV SCH (10:00)
[2022-07-06] MEDS: ACETAMINOPHEN 325 MG TAB PO PRN (12:36)
[2022-07-06] MEDS ORDERED: PPN PER PHARMACY IV NR ×10 (20:00)
== END 2022-07-06 23:20 | disposition short-term general hospital (02) | DRG 853 ==
LOC: EDBD 18:43 → ER 18:53 → TELE 21:37 → ICU WEST 06-24 12:35 → DOU IN ICU 07-02 17:28
PROVIDERS: ADMIT Nurse Practitioner; ATTEND Internal Medicine Pulmonary Disease
PROC: 0W9930Z Drainage of Right Pleural Cavity with Drainage Device, Percutaneous Approach (ICD-10-PCS; 2022-06-24)
PROC: 5A12012 Performance of Cardiac Output, Single, Manual (ICD-10-PCS; 2022-06-24)
PROC: 06HM33Z Insertion of Infusion Device into Right Femoral Vein, Percutaneous Approach (ICD-10-PCS; 2022-06-24)
PROC: 4A023N7 Measurement of Cardiac Sampling and Pressure, Left Heart, Percutaneous Approach (ICD-10-PCS; 2022-06-24)
PROC: 5A1223Z Performance of Cardiac Pacing, Continuous (ICD-10-PCS; 2022-06-24)
PROC: B2111ZZ Fluoroscopy of Multiple Coronary Arteries using Low Osmolar Contrast (ICD-10-PCS; 2022-06-24)
PROC: B2151ZZ Fluoroscopy of Left Heart using Low Osmolar Contrast (ICD-10-PCS; 2022-06-24)
PROC: 5A1955Z Respiratory Ventilation, Greater than 96 Consecutive Hours (ICD-10-PCS; 2022-06-24)
PROC: 0BH17EZ Insertion of Endotracheal Airway into Trachea, Via Natural or Artificial Opening (ICD-10-PCS; 2022-06-24)
PROC: 05H933Z Insertion of Infusion Device into Right Brachial Vein, Percutaneous Approach (ICD-10-PCS; 2022-07-01)
PROC: B54MZZA Ultrasonography of Right Upper Extremity Veins, Guidance (ICD-10-PCS; 2022-07-01)
PROC: 02H63JZ Insertion of Pacemaker Lead into Right Atrium, Percutaneous Approach (ICD-10-PCS; 2022-07-02)
PROC: 02HK3JZ Insertion of Pacemaker Lead into Right Ventricle, Percutaneous Approach (ICD-10-PCS; 2022-07-02)
PROC: 0JH606Z Insertion of Pacemaker, Dual Chamber into Chest Subcutaneous Tissue and Fascia, Open Approach (ICD-10-PCS; principal; 2022-07-02 14:45)
PROC: 0WP9X0Z Removal of Drainage Device from Right Pleural Cavity, External Approach (ICD-10-PCS; 2022-07-04)
PROC: 05HC33Z Insertion of Infusion Device into Left Basilic Vein, Percutaneous Approach (ICD-10-PCS; 2022-07-05)
PROC: B54NZZA Ultrasonography of Left Upper Extremity Veins, Guidance (ICD-10-PCS; 2022-07-05)
DX: A41.9 Sepsis, unspecified organism (principal); I46.9 Cardiac arrest, cause unspecified; J96.01 Acute respiratory failure with hypoxia; J18.9 Pneumonia, unspecified organism; R65.21 Severe sepsis with septic shock; I49.01 Ventricular fibrillation; J93.9 Pneumothorax, unspecified; I51.81 Takotsubo syndrome; N17.9 Acute kidney failure, unspecified; E87.0 Hyperosmolality and hypernatremia; E87.1 Hypo-osmolality and hyponatremia; I47.2 Ventricular tachycardia; I44.1 Atrioventricular block, second degree; N18.9 Chronic kidney disease, unspecified; I12.9 Hypertensive chronic kidney disease with stage 1 through stage 4 chronic kidney disease, or unspecified chronic kidney disease; E03.9 Hypothyroidism, unspecified; E11.22 Type 2 diabetes mellitus with diabetic chronic kidney disease; E66.9 Obesity, unspecified; E78.5 Hyperlipidemia, unspecified; E83.42 Hypomagnesemia; J98.2 Interstitial emphysema; Z20.822 Contact with and (suspected) exposure to COVID-19; E87.6 Hypokalemia; I48.91 Unspecified atrial fibrillation; R13.10 Dysphagia, unspecified; T88.4XXA Failed or difficult intubation, initial encounter; Y83.8 Other surgical procedures as the cause of abnormal reaction of the patient, or of later complication, without mention of misadventure at the time of the procedure; Y92.89 Other specified places as the place of occurrence of the external cause; Z86.73 Personal history of transient ischemic attack (TIA), and cerebral infarction without residual deficits; Z87.730 Personal history of (corrected) cleft lip and palate; Z68.32 Body mass index [BMI] 32.0-32.9, adult
CPT/HCPCS: 33208; 33210; 36415; 36600; 71045; 71250; 80048; 80053; 81001; 82550; 82570; 82805; 82962; 83605; 83735; 83880; 83930; 83935; 84100; 84132; 84156; 84300; 84443; 84478; 84484; 85025; 85610; 85730; 86141; 87070; 87081; 87205; 92507; 92610; 92950; 93005; 93306; 93457; 93971; 94002; 94003; 94640; 96361; 96365; 96366; 96367; 96368; 96375; 99152; C1751; C1785; C9113; G0378; J0171; J0330; J0696; J1815; J2001; J2250; J2405; J2704; J3480; J3490; J7060